=== PATIENT | male | born 1960 | race Hispanic/Latino ===

== ENCOUNTER 2016-07-31 08:29 | Outpatient (CLI) | payer BC ==
[2016-07-31 10:45] LABS: ALT (SGPT) 27 U/L (0-55); AST (SGOT) 23 U/L (5-34); Alkaline Phosphatase 62 U/L (40-150); Anion Gap 13 mmol/L (10-20); BUN (Urea Nitrogen) 19 mg/dL (8.4-25.7); Bilirubin, Total 1.1 mg/dL (0.2-1.2); Calc. Creatinine Clearance 0 mL/min (70-130); Calcium 9.3 mg/dL (7.8-10.44); Carbon Dioxide 24 mmol/L (22-29); Chloride 108 mmol/L (98-107); Estimated GFR-MDRD 76; Globulin 3.2 g/dL (2.4-3.5); LDL Cholesterol, Calculated 72 mg/dL; Protein, Total 7.6 g/dL (6.0-8.3)
[2016-07-31 10:58] LABS: #Basophils 0.1 thou/uL (0.0-0.2); #Eosinphils 0.3 thou/uL (0.0-0.7); #Lymphocytes 1.6 thou/uL (1.20-3.40); #Monocytes 0.4 thou/uL (0.11-0.59); #Neutrophils 3.4 thou/uL (1.40-6.50); %Basophils 0.9 % (0.0-1.0); %Monocytes 6.4 % (0.0-10.0); Hematocrit 44.4 % (42.0-52.0); Mean Platelet Volume 8.1 fL (7.4-10.4); Red Blood Cell (RBC) Count 4.85 mill/uL (4.70-6.10); White Blood Cell (WBC) Count 5.6 thou/uL (4.8-10.8)
[2016-07-31 11:15] LABS: Hemoglobin A1c 6.5 % (4.0-6.0)
== END 2016-07-31 08:30 ==
LOC: HPCALD 08:29
PROVIDERS: ATTEND Family Medicine
DX: E78.5 Hyperlipidemia, unspecified (principal); E11.9 Type 2 diabetes mellitus without complications; I10 Essential (primary) hypertension
CPT/HCPCS: 36415; 80053; 80061; 83036; 85025

== ENCOUNTER 2017-02-11 10:05 | Outpatient (CLI) | payer BC ==
[2017-02-11 12:00] LABS: #Eosinphils 0.2 thou/uL (0.0-0.7); #Lymphocytes 1.7 thou/uL (1.20-3.40); #Monocytes 0.4 thou/uL (0.11-0.59); #Neutrophils 4.4 thou/uL (1.40-6.50); %Basophils 0.7 % (0.0-1.0); %Eosinophils 2.5 % (0.0-10.0); %Lymphocytes 24.7 % (21.0-51.0); %Monocytes 6.6 % (0.0-10.0); %Neutrophils 65.5 % (42.0-75.0); Hemoglobin 16.4 g/dL (14.0-18.0); Mean Corpuscular HGB CONC 35.4 g/dL (32.0-36.0); Mean Corpuscular Hemoglobin 32.5 pg (27.0-31.0); Mean Corpuscular Volume 91.7 fl (80.0-94.0); Mean Platelet Volume 8.7 fL (7.4-10.4); Platelet Count 188 thou/uL (130-400); RBC Distribution Width 10.1 % (11.5-14.5); Red Blood Cell (RBC) Count 5.04 mill/uL (4.70-6.10); White Blood Cell (WBC) Count 6.7 thou/uL (4.8-10.8)
[2017-02-11 12:54] LABS: ALT (SGPT) 24 U/L (8-55); AST (SGOT) 17 U/L (5-34); Albumin 4.5 g/dL (3.5-5.0); Alkaline Phosphatase 89 U/L (40-150); Anion Gap 15 mmol/L (10-20); BUN (Urea Nitrogen) 18 mg/dL (8.4-25.7); Bilirubin, Total 1.4 mg/dL (0.2-1.2); Calc. Creatinine Clearance 0 mL/min (70-130); Calcium 9.5 mg/dL (7.8-10.44); Carbon Dioxide 23 mmol/L (22-29); Cardiac Risk 3.9 (Less than 4.5); Chloride 103 mmol/L (98-107); Cholesterol 154 mg/dl (< 200 Desired); Estimated GFR-MDRD 73; Globulin 3.2 g/dL (2.4-3.5); Glucose 274 mg/dL (70-105); HDL Cholesterol 40 mg/dL (>60 Neg Risk); Hemoglobin A1c 9.4 % (4.0-6.0); LDL Cholesterol, Calculated 78 mg/dL; Potassium 4.4 mmol/L (3.5-5.1); Protein, Total 7.7 g/dL (6.0-8.3); Sodium 137 mmol/L (136-145); Triglycerides 180 mg/dL (Less than 150)
[2017-02-11 12:55] LABS: PSA-Asymptomatic (SCREENING) 1.65 ng/mL (0-4.0); Thyroid Stimulating Hormone 0.6293 uIU/mL (0.35-4.94)
== END 2017-02-11 10:06 | disposition home or self-care (01) ==
LOC: HPCALD 10:05
PROVIDERS: ATTEND Family Medicine
DX: Z12.5 Encounter for screening for malignant neoplasm of prostate (principal); E11.9 Type 2 diabetes mellitus without complications; E78.5 Hyperlipidemia, unspecified; I10 Essential (primary) hypertension
CPT/HCPCS: 80053; 80061; 83036; 84443; 85025; G0103

== ENCOUNTER 2021-11-22 09:28 | Outpatient (CLI) | payer OTHER ==
[2021-11-22 10:06] LABS: #Basophils 0.1 thou/uL (0.0-0.2); #Eosinphils 0.2 thou/uL (0.0-0.7); #Lymphocytes 1.5 thou/uL (1.20-3.40); #Monocytes 0.4 thou/uL (0.11-0.59); %Eosinophils 4.3 % (0.0-10.0); %Lymphocytes 28.9 % (21.0-51.0); %Monocytes 8.2 % (0.0-10.0); %Neutrophils 57.6 % (42.0-75.0); Hemoglobin 15.7 g/dL (14.0-18.0); Mean Corpuscular HGB CONC 35.5 g/dL (32.0-36.0); Mean Corpuscular Hemoglobin 32.3 pg (27.0-31.0); Mean Corpuscular Volume 91.1 fL (78.0-98.0); Mean Platelet Volume 8.3 fL (7.4-10.4); Platelet Count 182 thou/uL (130-400); RBC Distribution Width 11.1 % (11.5-14.5); Red Blood Cell (RBC) Count 4.87 mill/uL (4.70-6.10); White Blood Cell (WBC) Count 5.2 thou/uL (4.8-10.8)
[2021-11-22 10:26] LABS: ALT (SGPT) 30 U/L (8-55); AST (SGOT) 21 U/L (5-34); Albumin 4.3 g/dL (3.5-5.0); Alkaline Phosphatase 67 U/L (40-110); Anion Gap 16 mmol/L (10-20); BUN (Urea Nitrogen) 17 mg/dL (8.4-25.7); Calc. Creatinine Clearance 0 mL/min (70-130); Calcium 9.2 mg/dL (7.8-10.44); Carbon Dioxide 24 mmol/L (22-29); Cardiac Risk 4.4 (Less than 4.5); Chloride 103 mmol/L (98-107); Cholesterol 170 mg/dl (< 200 Desired); Estimated GFR 77; Globulin 3.3 g/dL (2.4-3.5); Glucose 209 mg/dL (70-105); HDL Cholesterol 39 mg/dL (>60 Neg Risk); LDL Cholesterol, Calculated 90 mg/dL; Potassium 4.5 mmol/L (3.5-5.1); Protein, Total 7.6 g/dL (6.0-8.3); Sodium 138 mmol/L (136-145); Triglycerides 205 mg/dL (Less than 150)
[2021-11-22 11:34] LABS: Hemoglobin A1c 7.7 % (4.0-6.0)
[2021-11-22 12:00] LABS: Creatinine, Urine 89.85 mg/dL (63-166); Microalbumin Urine 1.9 mg/dL (0.5-50.0); Microalbumin/Creat Ratio 21.1 mg/g (Less than 30)
[2021-11-22 17:21] LABS: PSA-Asymptomatic (SCREENING) 2.08 ng/mL (0-4.0)
[2021-11-23 04:50] LABS: Thyroid Stimulating Hormone 0.7488 uIU/mL (0.35-4.94)
== END 2021-11-22 09:29 | disposition home or self-care (01) ==
LOC: BURLAB 09:28
PROVIDERS: ATTEND Family Medicine
DX: Z12.5 Encounter for screening for malignant neoplasm of prostate (principal); E11.9 Type 2 diabetes mellitus without complications; E78.5 Hyperlipidemia, unspecified; I10 Essential (primary) hypertension
CPT/HCPCS: 36415; 80053; 80061; 82043; 83036; 84443; 85025; G0103

== ENCOUNTER 2022-11-24 09:09 | Outpatient (CLI) | payer OTHER ==
[2022-11-24 09:46] LABS: #Basophils 0.1 thou/uL (0.0-0.2); #Eosinphils 0.1 thou/uL (0.0-0.7); #Lymphocytes 1.3 thou/uL (1.20-3.40); #Monocytes 0.3 thou/uL (0.11-0.59); #Neutrophils 3.6 thou/uL (1.40-6.50); %Eosinophils 2.6 % (0.0-10.0); %Lymphocytes 23.9 % (21.0-51.0); %Monocytes 5.8 % (0.0-10.0); %Neutrophils 66.8 % (42.0-75.0); Hemoglobin 16.3 g/dL (14.0-18.0); Mean Corpuscular Hemoglobin 33.1 pg (27.0-31.0); Mean Platelet Volume 8.6 fL (7.4-10.4); Platelet Count 190 10x3/uL (130-400); RBC Distribution Width 10.3 % (11.5-14.5); Red Blood Cell (RBC) Count 4.92 mill/uL (4.70-6.10); White Blood Cell (WBC) Count 5.4 10x3/uL (4.8-10.8)
[2022-11-24 10:00] LABS: ALT (SGPT) 25 U/L (8-55); AST (SGOT) 20 U/L (5-34); Albumin 4.5 g/dL (3.4-4.8); Alkaline Phosphatase 75 U/L (40-110); Anion Gap 14 mmol/L (10-20); BUN (Urea Nitrogen) 13 mg/dL (8.4-25.7); Bilirubin, Total 0.5 mg/dL (0.2-1.2); Calc. Creatinine Clearance 0 mL/min (70-130); Calcium 9.6 mg/dL (7.8-10.44); Carbon Dioxide 21 mmol/L (23-31); Cardiac Risk 3.9 (Less than 4.5); Chloride 106 mmol/L (98-107); Cholesterol 155 mg/dl (< 200 Desired); Estimated GFR 79; Globulin 3.2 g/dL (2.4-3.5); Glucose 201 mg/dL (80-115); HDL Cholesterol 40 mg/dL (>60 Neg Risk); LDL Cholesterol, Calculated 90 mg/dL; Potassium 4.3 mmol/L (3.5-5.1); Protein, Total 7.7 g/dL (5.8-8.1); Sodium 137 mmol/L (136-145); Triglycerides 127 mg/dL (Less than 150)
[2022-11-24 12:03] LABS: Creatinine, Urine 103.15 mg/dL (63-166); Microalbumin Urine 2.7 mg/dL (0.5-50.0); Microalbumin/Creat Ratio 26.2 mg/g (Less than 30)
[2022-11-24 12:10] LABS: Hemoglobin A1c 8.3 % (4.0-6.0)
[2022-11-24 13:51] LABS: Hep C IgG Ab Non-Reactive S/CO (NonReactive); Hep C Index 0.32 S/CO (0-0.79); PSA-Asymptomatic (SCREENING) 2.035 ng/mL (0-4.0)
== END 2022-11-24 09:10 | disposition home or self-care (01) ==
LOC: BURLAB 09:09
PROVIDERS: ATTEND Family Medicine
DX: Z11.4 Encounter for screening for human immunodeficiency virus [HIV] (principal); Z12.5 Encounter for screening for malignant neoplasm of prostate; Z11.59 Encounter for screening for other viral diseases; I10 Essential (primary) hypertension; E78.5 Hyperlipidemia, unspecified; E11.9 Type 2 diabetes mellitus without complications
CPT/HCPCS: 36415; 80053; 80061; 82043; 83036; 84443; 85025; 86703; 86803; G0103